=== PATIENT | female | born 1970 | race Caucasian/White ===

== ENCOUNTER → 2020-01-27 | Outpatient (CLI) | payer MEDICARE, BC ==
[~2020-01-27] MED LIST: ALBUTEROL0.09 MG/A4 IH; ASPIRIN 81M81 MG/TA2 PO; ASPIRIN E.C. 8181 MG PO; ATROVENT I0.2 MG/1 M IH; ATROVENT INHALE14 GM IH; AYR SALINE GEL1 NS; BENADRYL50 MG PO; BREO IH; CALCIUM 600 W/V1 TAB PO; DIAZEPAM2 MG PO; EPIPEN 2-PAK1 MG/ML IM; IPRATROPIUM BROM3 M1 IH; LIORESAL 1010 MG/TAB PO; MAGNESIUM200 MG PO; MASON NATURAL1200 MG PO; MULTIPLE VITAMI1 CAP PO; OMEPRAZOLE MAGN20 MG PO; PATADAY 2.5 ML2.5 ML OU; PROAIR HFA0.09 MG/AC IH; RESTASIS 60VL; SINGULAIR10 MG PO; SODIUM CHLORIDE45 ML NS; SPIRIVA18 MCG IH; SYMBICORT1 AE3 IH; SYSTANE ULTRA 010 ML OP; SYSTANE ULTRA OP; TYLENOL 500MG500 MG PO; VALIUM 2MG T2 MG/TAB PO; VITAMIN B121000 MC2 SL; VITAMIN D32000 I1 PO; VITAMIN E 400 U4001 PO; ZYRTEC10 MG PO
== END ==
LOC: COL.VAS 01-25 13:30
DX: Z01.810 Encounter for preprocedural cardiovascular examination (principal); I63.9 Cerebral infarction, unspecified; I34.0 Nonrheumatic mitral (valve) insufficiency

== ENCOUNTER 2021-12-13 11:16 | Inpatient (IN) | payer MEDICARE, BC ==
[~2021-12-13] VITALS: Ht 157.5 cm; Wt 67.0 kg
[2021-12-13] MEDS ORDERED: ZETIA 10MG TAB10 MG PO (14:31)
[2021-12-13] MEDS ORDERED: PLAVIX 75MG TAB75 MG PO (14:33)
[2021-12-13] MEDS ORDERED: MAGNESIUM250 M1 PO (14:35)
[2021-12-13] MEDS ORDERED: ANTIVERT 25MG25 MG PO (14:36)
[2021-12-13] MEDS ORDERED: NATURAL E400 IU PO (14:42)
[2021-12-13 15:58] VITALS: BP 118/75; PULSE 86; TEMP 98.5
--- NOTE | 2021-12-13 16:19 | NUR ---
Pt arrived to unit from [facility] via wheelchair. Pt. transferred to recliner in room at her request. Orientation provided to room/unit. Admission intake and assessment completed. Pt. is A/O x 4. Wears glasses. No hearing deficits. Left sided hemiparesis noted. Pt. 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 Pt denies additional needs at this time. Call light is in her reach. Chair alarm is on
--- NOTE | 2021-12-13 19:14 | NUR ---
PRESENTED TO ROOM TO ADMIN BID TX. PT WAS AGGITATED AND VERY SHORT. STATES THAT THE TREATMENTS SHOULD JUST BE PRN. ASKED IF SHE TOOK MAINTENANCE INHALERS AT HOME AND SHE STATES THAT SHE TAKES BREO AT HOME. REPORTED TO PT THAT THE P&P WERE ORDERED A SUB FOR BREO. PT WAS DISSMISSIVE AND STATES SHE DOESNT WANT IT AND SHE ALREADY TOOK BREO TODAY.
--- NOTE | 2021-12-13 21:03 | NUR ---
PT SITTING IN RECLINER. A&OX4. LT HEMIPARESIS NOTED. SL FACIAL DROOP. DYSARTHIA NOTED. DENIES PAIN AT THIS TIME. INVESTIGATIONS CHIEF ASSISTING PIVOT TRANSFER TO BSC TO VOID THEN TO BED. WEAK UNSTEADY GAIT.
[2021-12-14 05:46] VITALS: BP 125/73; PULSE 72; TEMP 97.6
--- NOTE | 2021-12-14 06:58 | NUR ---
BEDSIDE REPORT DONE. PATIENT RESTING IN BED. NO DISTRESS NOTED. CALL LIGHT IN REACH.
--- NOTE | 2021-12-14 08:50 | NUR ---
PATIENT IS ALERT AND ORIENTED X 4 WITH NO MEMORY ISSUE. PATIENT IN BED WITH NO DISTRESS. PATIENT DID ASK ABOUT HER MEDICATION THAT SHE NORMAL USE CAN BE ORDER. PATIENT TAKE MEDICATION WHOLE.PATIENT IS A MOD 1 ASSIT WITH WALKER AND USE WHEELCHAIR IF NEEDED.
--- NOTE | 2021-12-14 15:58 | NUR ---
general worker met with patient to complete intake. Patient reports that she lived at home with both her mother Juana [phone] and her father. She see's for a PCP and utilizes [facility] in [place] for medications. Patient reports that prior to her stroke she had carpal tunnel surgery to her right wrist in September of this year but was independent with her ADL's prior to that. She states her father has had multiple heart attacks and her mother is the decker operator for both her and her father. Prior to surgery, she would help her mother with caring for the household cleaning, taking care of the pets and at times cooking. Since her surgery she has not been able to help her mother with as much and is wanting to get as much out of therapy while here so she can take some of the "burden off of her plate". Patient reports that her mobility has also decreased since surgery, due to her utilizing a cane to assist with balance and with her surgery she has been unable to use it. Patient started utilizing a cane in 2003 when she had her first major stroke and verbalizes that she has had a "dozen TIA's since 2019". Patient has followed a neurologist since [phone] for her "muscles" and has had the diagnosis of multiple sclerosis a few times, but then the doctor will tell her "it's not MS". She expresses some frustration with this. Patient does not have a DPOA-HC established at this time. She is not but does have 1 adult son, Torres Starkey who currently lives in [facility]. Patients top two goals are to inprove mobility and manage stairs, due to her living in the basement of her parents home. Patient was expecting to have PT,OT,ST but has never done inpatient therapy previously, only out patient. At this time she is noticing that she is having to have less staff help her with transfers compared to [facility] and is counting that as an achievement.
[2021-12-14 17:20] VITALS: BP 122/72; PULSE 76; TEMP 99
--- NOTE | 2021-12-14 21:08 | NUR ---
PT RESTING IN BED. DENIES RUQ PAIN OR NAUSEA. HAS MILD FRONTAL HEADACHE. SEE MAR FOR SCHEDULED TYLENOL. SEE MAR FOR VALIUM GIVEN PER REQUEST. LT SIDE WEAKNESS. SLURRED SPEECH NOTED. CALL LIGHT IN REACH. BED ALARM SET.
[2021-12-15 05:29] VITALS: BP 116/63; PULSE 59; TEMP 98
--- NOTE | 2021-12-15 05:46 | NUR ---
PT C/O LT UPPER ARM RED RASH- ITCHING. BENADRYL & HYDROCORTISONE CREAM GIVEN.
--- NOTE | 2021-12-15 06:45 | NUR ---
BEDSIDE REPORT DONE ORDER. PATIENT RESTING IN BED . CALL LIGHT IN REACH
--- NOTE | 2021-12-15 09:49 | NUR ---
ASSESSMENT DONE ORDER. PATIENT HERLINDA X 4 WITH NO MEMORY ISSUE. PATIENT HAS ALOT OF ALLERGES THAT WILL CAUSE HER TO BREAK OUT. PATIENT DEVELOP A RASH YESTERDAY BUT DOESN'T KNOW HOW SHE GOT IT. BENADRYL WAS STARTED WTIH 1 DOSE OF PECID AND HYROCORTOZINE CREAM. PATIENT ABLE TO GET UP BUT WITH ASSISTANCE AND WALKER AND GAIT BELT. LEFT SIDE IS WEAK AND HAVE A HARD TIME FUNCTION AND DEPEND ON HER RIGHT SIDE TO [place] PACE. LUNG CLEAR IN ALL LOBES. BOWEL SOUND ACTIVE WITH A BOWEL MOVEMENT TODAY
[2021-12-15 17:28] VITALS: BP 118/71; PULSE 69; TEMP 98
--- NOTE | 2021-12-15 18:42 | NUR ---
PATIENT CONTINUE WITH THE RASH ON HER LEFT UPPER ARM. PATIENT STILL DOESN'T KNOW HOW SHE GOT IT BUT REQUESTING BENADRYL THROUGH THE DAY TODAY. CREAM WAS APPLIED ORDER. I MADE SURE THAT MY HANDS WAS WASH AND NO SKIN TO SKIN CONTACT WAS DONE. PATIENT REQUESTING VALIUM TWICE A DAY ROUTINELY DUE TO HER TREMORS. SHE ALSO REQUESTED FOR THE ALBUTEROL TO BE PRN. I INFORM DOCOR REGARDING THE REQUEST. PATIENT WAS ABLE TO WALK TO THE BATHROOM DURING THERAPY AND REST OF MY SHIFT. PATIENT REQUEST FOR COMMODE AT NIGHT DUE TO HER LEFT LEG GIVE OUT ALOT AND SHE IS TIRED DUE TO THE THERAPY. PATIENT IS GLUTEN FREE AND DAIRY FREE. SPOKE WITH CONCRETE VIBRATOR OPERATOR ABOUT HER DIET AND THAT SHE REQUESTING TO TALK TO HER ABOUT DIFFERENT FOOD THAT SHE SHOULDN'T BE EATING. PAIENT ABLE TO TAKE MEDICATION WHOLE WITH OUT ANY ISSUE.
--- NOTE | 2021-12-15 18:52 | NUR ---
RECEIVED CHANGE OF SHIFT REPORT FROM DAY SHIFT RN.
[2021-12-16 05:57] VITALS: BP 120/69; PULSE 60; TEMP 97.8
--- NOTE | 2021-12-16 07:37 | NUR ---
CHANGE OF SHIFT REPORT GIVEN TO DAY SHIFT RNNICHOLE.
--- NOTE | 2021-12-16 07:49 | NUR ---
Shift report received from shift coordinator RN
--- NOTE | 2021-12-16 09:07 | NUR ---
Pt. out of bed to shower with OT. Rash remains to left tricep - rash is red, flat, and itchy. PRN Benadryl given this morning at patient's request. Hydrocortisone applied per order.
--- NOTE | 2021-12-16 15:22 | NUR ---
Pt sitting up in recliner with BLE elevated on footrest. Ice pack was given for pt. c/o pain r/t hx of carpal tunnel syndrome. Pt reporting some itchy scabbed areas to both of her pos. thighs. Scabs x 2 with surrounding redness and peeling skin noted to back of right thigh, similar scab x 2 noted to back of left thigh. Lotion applied and all (3) areas were covered with a latex free bandaid. Pt. denies additional needs at this time. Call light is in her reach. Chair alarm is on
[2021-12-16 17:14] VITALS: BP 115/62; PULSE 62; TEMP 98
[2021-12-17 05:45] VITALS: BP 130/69; PULSE 62; TEMP 97.5
--- NOTE | 2021-12-17 06:37 | NUR ---
pt called RN to room, states her left eye "feels funny, feels off" assessed KALYNRARMAAN at this time, also c/o slight MARTINS, 0900 eye drops and tylenol given @this time. pt assisted to restroom with stand/pivot to W/C with GB and assist of 1, no increase in left sided weakness noted.
--- NOTE | 2021-12-17 07:00 | NUR ---
Shift report received from night club manager RN. Pt. reporting right eye blurred vision, left sided headache, and that her right hand/arm feels weaker than normal. PERRLA. Hand implementation specialist payroll are equal. Smile is symmetric. Pt. denies feeling dizzy. Speech is at her baseline - delayed. VSS. Hospitalist notified
[2021-12-17 07:02] VITALS: BP 132/69; PULSE 74; TEMP 97.7
--- NOTE | 2021-12-17 09:10 | NUR ---
Pt off unit for Head CT
--- NOTE | 2021-12-17 09:24 | NUR ---
Pt back from CT. Pt. assisted to recliner. She reports that her headache is unchanged. Pt feels like her "eyes are pulling together" but reports normal vision. Will continue to monitor
--- NOTE | 2021-12-17 14:18 | NUR ---
Pt sitting in recliner. Pt continues to feel like her eyes are crossing intermittently. No headache. No other pain/discomfort. No changes in speech or neuro status. Pt. denies further needs. Call light is in her reach. Chair alarm is on
[2021-12-17 16:57] VITALS: BP 112/71; PULSE 70; TEMP 98
--- NOTE | 2021-12-17 18:58 | NUR ---
RECEIVED CHANGE OF SHIFT REPORT FROM DAY SHIFT RN.
--- NOTE | 2021-12-17 22:14 | NUR ---
PATIENT REPORTS VISION UNCHANGE BUT NOTICES LEFT EYE "JUMPING AROUND" FROM EARLIER FELT LIKE HER "EYES WERE CROSSING". OBSERVED SLIGHT L HAND DRIP WITH YOHANA HAND INTERLOCKING AND SIGNAL MECHANIC WEAK. OBSERVED GAIT HESITENT WITH GAIT STRIDE WITH WALKING TO AND FROM BATHROOM.
[2021-12-18 05:32] VITALS: BP 127/67; PULSE 64; TEMP 97.8
--- NOTE | 2021-12-18 07:06 | NUR ---
CHANGE OF SHIFT REPORT GIVEN TO DAY SHIFT RNBK.
--- NOTE | 2021-12-18 07:09 | NUR ---
BEDSIDE REPORT DONE ORDER. PATIENT AWAKE IN BED WATCHING TV. CALL LIGHT IN REACH. NO DISTRESS
--- NOTE | 2021-12-18 08:58 | NUR ---
ASSESSMENT DONE. PATIENT RESTING WITH NO DISTRESS.LUNG CLEAR IN ALL LOBES. BOWEL SOUND ACTIVE IN ALL 4 QUADS. PATIENT STATED THAT SHE FEELS BETTER THAN YESTERDAY. HVING COMPLAIN ABOUT RIGHT ARM ELBOW DUE TO THEWALKER ARM. DR NICK WAS AWARE AND PT
--- NOTE | 2021-12-18 13:26 | NUR ---
Admission QIM scores were reviewed by the team. Code of 3 chosen for oral hygiene was determined by team discussion to be the most usual performance before interventions for this patient during the assessment period. Code of 3 chosen for toilet hygiene was determined by team discussion to be the most usual performance before interventions for this patient during the assessment period. Code of 3 chosen for toilet transfer was determined by team discussion to be the most usual performance before interventions for this patient during the assessment period. Code of 2 chosen for lower body dressing was determined by team discussion to be the most usual performance before interventions for this patient during the assessment period. Code of 3 chosen for putting on/taking off footwear was determined by team discussion to be the most usual performance before interventions for this patient during the assessment period. Code of 3 chosen for sit to lying was determined by team discussion to be the most usual performance before interventions for this patient during the assessment period. Code of 4 chosen for lying to sitting on side of bed was determined by team discussion to be the most usual performance before interventions for this patient during the assessment period. Code of 2 chosen for sit to stand was determined by team discussion to be the most usual performance before interventions for this patient during the assessment period. Code of 2 chosen for chair/bed to chair transfer was determined by team discussion to be the most usual performance before interventions for this patient during the assessment period. Code of 2 chosen for walk 10 feet was determined by team discussion to be the most usual performance for this patient during the discharge assessment period.--PD Ehsan
[2021-12-18 17:44] VITALS: BP 115/74; PULSE 66; TEMP 98.2
--- NOTE | 2021-12-18 22:35 | NUR ---
PT RETURNED TO BED AT TIME OF ASSESSMENT AFTER UNMEASURED VOID IN RESTROOM. NO COMPLAINTS OF PAIN AT THIS TIME
[2021-12-19 05:08] VITALS: BP 134/65; PULSE 60; TEMP 97.6
--- NOTE | 2021-12-19 07:19 | NUR ---
REPORT DONE. PATIENT RESTING IN BED. CALL LIGHT IN REACH
--- NOTE | 2021-12-19 11:05 | NUR ---
ASSESSMENT DONE. PATIENT HAS NO CONCERN TODAY. LUNG CLEAR IN ALL LOBES. BOWEL SOUND ACTIVE IN ALL 4 QUADS.MEDICATION TAKE ORDER. EATING ABOUT 70-100% OF HER MEALS PLUS HER SNACKS THAT HER PARENTS BRINGS FOR HER.
[2021-12-19 17:31] VITALS: BP 115/89; PULSE 75; TEMP 98.1
--- NOTE | 2021-12-19 22:40 | NUR ---
PT ABLE TO AMBULATE TO BATHROOM AND SINK WITH MINIMAL ASSISTANCE AND WALKER AT TIME OF ASSESSMENT. ORAL HYGIENE PERFORMED AND UNMEASURED VOID OCCURED. PT REPORTS NO PAIN AND HAS NO FUTHER CONCERNS AT THIS TIME. BED ALARM SET AND CALL LIGHT WITHIN REACH.
[2021-12-20 05:00] VITALS: BP 120/71; PULSE 75; TEMP 97.6
--- NOTE | 2021-12-20 08:55 | NUR ---
Shift report received from steward/stewardess night RN
--- NOTE | 2021-12-20 11:17 | NUR ---
Pt off the unit to work with OT
[2021-12-20 12:54] LABS: BASO % 0.7 % (0.0-2.0); EOS % 0.9 % (0.0-4.0); GRAN % 46.7 % (42.2-75.2); HEMATOCRIT 43.4 % (37.0-47.0); HEMOGLOBIN 14.8 g/dl (12.5-16.0); LYMPH # 1.8 K/mm3 (1.2-3.4); LYMPH % 42.2 % (20.0-51.0); MEAN CELL VOLUME 104 fl (80.0-100.0); MEAN CORPUSCULAR HEMOGLOBIN 35 pg (27-31); MEAN CORPUSCULAR HGB CONC 34 g/dl (33.0-37.0); MEAN PLATELET VOLUME 9.2 fl (7.4-10.4); MONO # 0.4 K/mm3 (0.1-0.6); PLATELET COUNT 274 K/mm3 (130-400); RED BLOOD COUNT 4.18 M/mm3 (4.10-5.30); REDCELL DISTRIBUTION WIDTH-CV 11.7 % (11.5-14.5)
[2021-12-20 13:01] LABS: CALCIUM 10.4 mg/dL (8.4-10.2); CREATININE, serum 0.67 mg/dL (0.57-1.11); POTASSIUM 3.9 mmol/L (3.5-4.5)
--- NOTE | 2021-12-20 14:39 | NUR ---
Reviewed team conference notes. She stated that she understood & agreed w/ the current level of functioning. She did express concerns about meal prep & stairs, which SW reassured her the therapists will work w/ her on. Informed her of d/c for 12/26/21, w/ recommendation for outpatient PT/OT/ST. She is fine w/ this plan. Verifed that she does have a s/cane at home but no r/walker & would like to get the walker from [facility]. She did [facility] She had questions which SW answered for her. Will continue to work w/ pt on d/c planning & provide support during stay.
[2021-12-20 17:20] VITALS: BP 117/63; PULSE 72; TEMP 97.8
--- NOTE | 2021-12-20 19:00 | NUR ---
RECEIVED CHANGE OF SHIFT REPORT FROM DAY SHIFT RN.
[2021-12-21 05:42] VITALS: BP 117/61; PULSE 85; TEMP 97.9
--- NOTE | 2021-12-21 06:37 | NUR ---
BEDSIDE REPORT DONE. CALL LIGHT IN REACH. PATIENTRESTING IN BED
--- NOTE | 2021-12-21 07:20 | NUR ---
CHANGE OF SHIFT REPORT GIVEN TO DAY SHIFT RNBK
--- NOTE | 2021-12-21 15:59 | NUR ---
healthcare social worker met with patient to check in. Patient reports that therapy is going well and she feels like she has made a lot of progress. Patient expresses concerns over not working a full flight of stairs yet and feels like it is being rushed but no other complaints. Family meeting arranged for Saturday afternoon at 1400. Patients parent's are planning on being present. IPR director notified.
[2021-12-21 16:35] VITALS: BP 102/66; PULSE 72; TEMP 97.7
--- NOTE | 2021-12-21 17:50 | NUR ---
ASSESSMENT WAS DONE AT 8 AM. LUNG CLEAR IN ALL LOBES. BOWEL SOUND ACTIVEIN ALL 4 QUADS. PATIENT HAS BEEN GETTING UP AND TRY TO DO MUCH ON HER OWN. SHE IS PULLING DOWN HER PANTS AND PICKING THEM UP ON HER OWN. TURNING OFF LIGHT ON HER OWN. PATIENT IS AWARE THAT SHE WILL BE DISCHARGING NEXT WEEK. CHANGING WHEELCHAIR TO ROLLAR AND REGULAR THROUGH OUT THE DAY. PATIENT HAD A MED BOWEL MOVEMENT TODAY
--- NOTE | 2021-12-21 21:00 | NUR ---
PT RESTING IN BED. NO COMPLAINTS VOICED. ASSISTED TO BR BY PODIATRIC MEDICINE DOCTOR WITH WALKER. VOIDING W/O DIFFICULTY. LEFT SIDED WEAKNESS. SPEECH SL SLURRED. TAKES PO MED WELL. NO NEEDS AT THIS TIME. CALL LIGHT IN REACH. BED ALARM SET.
[2021-12-22 05:26] VITALS: BP 125/68; PULSE 61; TEMP 97.8
--- NOTE | 2021-12-22 06:48 | NUR ---
Shift report received from watchguard RN
--- NOTE | 2021-12-22 09:53 | NUR ---
Pt has returned to room after working with OT. She is now on Mod I status in her room. Pt. encouraged to call for help if she needs it. Pt. v/u. She denies additional needs. Call light is in her reach
[2021-12-22 18:00] VITALS: BP 127/63; PULSE 76; TEMP 98.1
--- NOTE | 2021-12-22 21:48 | NUR ---
PT RESTING IN BED. MOD I IN ROOM. ENC SAFETY. CALL STAFF IF NEEDED. NO DISTRESS. CALL LIGHT IN REACH. BED ALARM SET.
[2021-12-23 05:05] VITALS: BP 121/63; PULSE 61; TEMP 97.7
--- NOTE | 2021-12-23 07:17 | NUR ---
BEDSIDE REPORT DONE. PATIENT RESTIN BED WITH CALL LIGHT IN REACH. BED ALARM OFF DUE TO PATIENT MOD 1
--- NOTE | 2021-12-23 07:53 | NUR ---
(LATE ENTRY) Family meeting held with patient and patient's parents. Also in attendance is the IPR director, PT, OT, ST and ST student. Team discusses the patient progress and upcoming therapy goals. SW discussed ordering the patient a walker. Informed them of target discharge date of 12/26. Patient and family are agreeable to this plan.
--- NOTE | 2021-12-23 13:09 | NUR ---
Thread Twister rounds: Patient accepted prayer and conversation. Patient stated that she had had a stroke. This is not her first stroke. She reflected on her life as the youngest of three daughters to a family in the that traveled.
[2021-12-23 17:30] VITALS: BP 116/70; PULSE 63; TEMP 97.7
--- NOTE | 2021-12-23 18:24 | NUR ---
PATIENT MOD I IN ROOM BUT STILL CALLED FOR HELP. PATIENT HAD ABUOT 4 WATER BOTTLES TODAY AND I JUST FILLED ONE UP WITH WATER AND ICE. PATIENT URINATE THROUGH OUT THE DAY.
--- NOTE | 2021-12-23 21:00 | NUR ---
PT RESTING IN BED. MOD I IN ROOM. LT HEMIPARESIS. AMB TO BR WITH WALKER INDEPENDNETLY. NO NEEDS AT THIS TIME. CALL LIGHT IN REACH.
[2021-12-24 05:11] VITALS: BP 126/75; PULSE 59; TEMP 97.7
--- NOTE | 2021-12-24 07:10 | NUR ---
BEDSIDE REPORT DONE. PATIENT IN BED AWAKE. CALL LIGHT IN REACH.
--- NOTE | 2021-12-24 09:49 | NUR ---
ASSESSMENT DONE. PATIENT IS ALERT X 4 WITH NO MEMORY ISSUE. PATIENT IS MOD I IN ROOM ABLE TO GET UP AND GET TO THE BATHROOM ON HER OWN. LUNG CLEAR IN ALL LOBES. BOWEL SOUND ACTIVE WITH A BOWEL MOVEMENT YESTERDAY.
[2021-12-24 17:21] VITALS: BP 116/63; PULSE 57; TEMP 97.6
--- NOTE | 2021-12-24 21:00 | NUR ---
PT RESTING IN BED. UP PER SELF TO BR W/ WALKER. MOD I IN ROOM. NO NEEDS AT THIS TIME. CALL LIGHT IN [facility].
[2021-12-25 06:11] VITALS: BP 125/68; PULSE 62; TEMP 97.9
--- NOTE | 2021-12-25 06:20 | NUR ---
PT CONTINUES MOD I WITH WALKER. NO NEEDS THIS AM.
--- NOTE | 2021-12-25 06:50 | NUR ---
Shift report received from retail shift leader RN
[2021-12-25 17:33] VITALS: BP 119/73; PULSE 62; TEMP 98
--- NOTE | 2021-12-25 17:50 | NUR ---
Pt has completed all OT/ST/PT sessions today. She has denied any breakthrough pain/discomfort (receiving scheduled Tylenol). Pt. remains Mod I in room but has needed help throughout the day lowering the footrest in her recliner - she has felt like she hasn't had the strength to do this on her own. Pt. sitting up in recliner at this time. Denies additional needs. Call light is within her reach
--- NOTE | 2021-12-25 19:07 | NUR ---
RECEIVED CHANGE OF SHIFT REPORT FROM DAMIAN MOLINA RN.
[2021-12-26 06:04] VITALS: BP 118/77; PULSE 78; TEMP 97.9
--- NOTE | 2021-12-26 06:48 | NUR ---
Shift report received from night baker RN
--- NOTE | 2021-12-26 07:03 | NUR ---
CHANGE OF SHIFT REPORT GIVEN TO DAY SHIFT RNNICHOLE.
--- NOTE | 2021-12-26 10:45 | NUR ---
Pt is sitting up in bed. She is looking forward to discharging home today. She is worried about a 4WW that should be delivered to the hospital today. Her mother plans to pick her up sometime after 11 a.m. She denies pain/discomfort. She remains on Mod I status in her room. She denies additional needs. Call light is in her reach
--- NOTE | 2021-12-26 13:36 | NUR ---
Discharge summary & home meds reviewed with pt & her parents. They had no further questions. Discussed follow up appointments. Pt. belongings were gathered by the pt and her parents. They denied any valuables. Pt. escorted by to vehicle and seatbelted for ride home
--- NOTE | 2021-12-26 13:47 | NUR ---
DME order signed and faxed to [facility]. SW requested for staff to deliver walker due to no family in town. Patient's clinical information and discharge orders faxed to [facility]. Agency contacted and states that they will contact the patient to schedule.
== END 2021-12-26 14:00 | disposition home or self-care (01) | DRG 57 ==
PROVIDERS: ADMIT Physical Medicine & Rehabilitation Sports Medicine
DX: I69.354 Hemiplegia and hemiparesis following cerebral infarction affecting left non-dominant side (principal); I69.392 Facial weakness following cerebral infarction; I69.322 Dysarthria following cerebral infarction; I69.393 Ataxia following cerebral infarction; R13.12 Dysphagia, oropharyngeal phase; I69.391 Dysphagia following cerebral infarction; M79.7 Fibromyalgia; I69.398 Other sequelae of cerebral infarction; R47.82 Fluency disorder in conditions classified elsewhere; H04.123 Dry eye syndrome of bilateral lacrimal glands; J45.909 Unspecified asthma, uncomplicated; Z85.828 Personal history of other malignant neoplasm of skin; Z88.8 Allergy status to other drugs, medicaments and biological substances; Z88.1 Allergy status to other antibiotic agents; Z91.040 Latex allergy status; Z88.0 Allergy status to penicillin; Z91.048 Other nonmedicinal substance allergy status; Z91.041 Radiographic dye allergy status; Z79.51 Long term (current) use of inhaled steroids; Z79.82 Long term (current) use of aspirin; Z79.02 Long term (current) use of antithrombotics/antiplatelets; Z79.899 Other long term (current) drug therapy; Z73.6 Limitation of activities due to disability; L25.9 Unspecified contact dermatitis, unspecified cause; H53.8 Other visual disturbances; M62.81 Muscle weakness (generalized); G25.2 Other specified forms of tremor
CPT/HCPCS: J1644

== ENCOUNTER → 2023-07-18 | Outpatient (CLI) | payer MEDICARE, BC ==
[~2023-07-18] MED LIST changes: +ANTIVERT 25MG25 MG PO; +MAGNESIUM250 M1 PO; +NATURAL E400 IU PO; +PLAVIX 75MG TAB75 MG PO; +ZETIA 10MG TAB10 MG PO
== END ==
LOC: COL.RAD 10:58
DX: M25.511 Pain in right shoulder (principal)

== ENCOUNTER → 2023-07-18 | Outpatient (CLI) | payer MEDICARE, BC | LOC: MHCPAIN 09:39 | DX: M51.36 Other intervertebral disc degeneration, lumbar region (principal); M79.7 Fibromyalgia; G89.4 Chronic pain syndrome; Z86.73 Personal history of transient ischemic attack (TIA), and cerebral infarction without residual deficits; M25.511 Pain in right shoulder ==

== ENCOUNTER → 2023-09-17 | Outpatient (CLI) | payer MEDICARE, BC | LOC: MHCPAIN 14:18 | DX: M13.842 Other specified arthritis, left hand (principal); G89.4 Chronic pain syndrome; M65.312 Trigger thumb, left thumb; Z86.73 Personal history of transient ischemic attack (TIA), and cerebral infarction without residual deficits | CPT/HCPCS: G0463 ==